=== PATIENT | male | born 1950 | race Caucasian/White ===

== ENCOUNTER 2019-04-26 23:07 | Observation (INO) | payer MEDICARE, MEDICAID ==
[~2019-04-26] VITALS: Ht 172.7 cm; Wt 81.8 kg
[2019-04-26 23:44] LABS: BASOPHILS # (AUTO) 0.1 X10'3 (0-0.2); BASOPHILS % (AUTO) 1.5 % (0-1); EOSINOPHILS # (AUTO) 0.3 X10'3 (0-0.9); EOSINOPHILS % (AUTO) 3.9 % (0-6); HEMATOCRIT 40.9 % (42.0-52.0); LYMPHOCYTES # (AUTO) 2.5 X10'3 (1.1-4.8); LYMPHOCYTES % (AUTO) 37.8 % (21-51); MEAN CORPUSCULAR HEMOGLOBIN 31.6 PG (27.0-31.0); MEAN CORPUSCULAR HGB CONC 34.3 g/dL (33.0-36.5); MEAN PLATELET VOLUME 8.8 FL (7.4-10.4); MONOCYTES # (AUTO) 0.6 X10'3 (0-0.9); MONOCYTES % (AUTO) 8.4 % (2-12); NEUTROPHILS # (AUTO) 3.2 X10'3 (1.8-7.7); NEUTROPHILS % (AUTO) 48.4 % (42-75); PLATELET COUNT 255 X10'3 (140-440); RED BLOOD COUNT 4.44 X10'6 (4.70-6.10); RED CELL DISTRIBUTION WIDTH 13.3 % (11.5-14.5); WHITE BLOOD COUNT 6.7 X10'3 (4.5-11.0)
[2019-04-26 23:52] LABS: PARTIAL THROMBOPLASTIN TIME 27 SECONDS (22-32)
[2019-04-26 23:53] LABS: ALANINE AMINOTRANSFERASE 34 U/L (12-78); ALBUMIN 3.9 G/DL (3.4-5.0); ALBUMIN/GLOBULIN RATIO 1.1 (1.1-1.5); ALKALINE PHOSPHATASE 77 IU/L (46-116); ANION GAP 14 (8-16); ASPARTATE AMINO TRANSFERASE 24 U/L (10-37); BILIRUBIN,TOTAL 0.4 MG/DL (0.1-1.0); BLOOD UREA NITROGEN 13 MG/DL (7-18); BUN/CREATININE RATIO 13.5 (5.4-32.0); CHLORIDE 104 MMOL/L (99-107); CREATININE 0.96 MG/DL (0.60-1.10); GLUCOSE 101 MG/DL (70-104); POTASSIUM 3.7 MMOL/L (3.5-5.1); SODIUM 139 MMOL/L (135-145); TOTAL CARBON DIOXIDE 21.2 MMOL/L (24-32); TOTAL PROTEIN 7.5 G/DL (6.4-8.2); eGFR 78 ML/MIN
--- NOTE | 2019-04-27 02:28 | NUR ---
Patient got up to go to the bathroom, was extremely unsteady, complaining of weakness and dizziness. Evaluated by MD Level 1 stroke alert initiated at this time. Patient's vitals stable at this time
[2019-04-27] MEDS ORDERED: iohexol 350MG/ML 100ml bottle IV ONE (02:30)
--- NOTE | 2019-04-27 02:41 | NUR ---
Patient returns to room. Amalia, stroke nurse, is at bedside awaiting patient.
--- NOTE | 2019-04-27 02:43 | NUR ---
Teleneurology contacted.
--- NOTE | 2019-04-27 02:56 | NUR ---
teleneurologist on camera evaluating patient with stroke nurse.
--- NOTE | 2019-04-27 03:15 | NUR ---
C/O vision being very blurred, exhibits difficulty forcusing on sentences handed to read aloud. Able to partially complete with difficulty.
[2019-04-27 03:18] LABS: ETHANOL 0.175 GM/DL (0.0-0.010)
[2019-04-27] MEDS ORDERED: OMEP40CA13 PO (03:37)
--- NOTE | 2019-04-27 03:42 | NUR ---
Arrived for level 1 stroke with onset at 0223 in the ED department. Pt arrived at 2300 with complaint of CP. Troponins so far are negative. Pt was up to amb to BR and was unsteady upon standing, upon return he was"all over the place and off balance" per the staff. [address] consult with DR Mejia at 0245. No tpa recommended. Inebriation suspected.
--- NOTE | 2019-04-27 03:47 | NUR ---
0310 Pt reports he went to a restaurant at about 8:30 or 9:00 to eat dinner. States had a few beers before arriving and after in addition to some wine. He suffers from heartburn and said he began to hiccough. He paid his bill and went to the restroom where he said he vomited and "passed out. He was found by a patron in the bathroom and was given some tums for his heartburn. He arrived by EMS to the ED at 2309 with C/O CP initially. Currently he has weakness in both lower ext and is ataxic in both upper extremities with finger to nose. He says he has difficulty seeing, but could read some sentences for me. No sensory loss noted. Speech is clear.
--- NOTE | 2019-04-27 03:49 | NUR ---
Patient is resting comfortably in bed and updated on POC.
--- NOTE | 2019-04-27 04:12 | NUR ---
Patient up to restroom with significant amount of assistance. He continues to be unsteady while standing and attempting to urinate.
[2019-04-27] MEDS ORDERED: magnesium hydroxide 30ml (MOM) UD suspension PO PRN (05:10)
[2019-04-27] MEDS ORDERED: acetaminophen 325mg tablet PO PRN ×2 (05:10)
[2019-04-27] MEDS ORDERED: mag hydrox/Alum hydrox/simeth 30ml oral suspension PO PRN (05:10)
[2019-04-27] MEDS ORDERED: HYDROcodone/acetaminophen 5mg/325mg tablet PO PRN (05:10)
[2019-04-27] MEDS ORDERED: diazepam 5mg tablet PO PRN (05:10)
[2019-04-27] MEDS ORDERED: ondansetron/PF 4mg/2ml inj IV PRN (05:10)
[2019-04-27 06:00] LABS: CHOL/HDL RATIO 2.3 (0.00-4.99); CHOLESTEROL 165 MG/DL (0-200); HDL CHOLESTEROL 71 MG/DL (35-60); LDL CHOLESTEROL 64 MG/DL (50-100); TRIGLYCERIDES 240 MG/DL (20-135)
--- NOTE | 2019-04-27 06:17 | NUR ---
Patient in ED. I have received report from POLINA Perez and had the opportunity to ask questions. Awaiting pt's arrival to PCU room 3013V.
[2019-04-27 06:30] VITALS: BP 142/87
--- NOTE | 2019-04-27 06:30 | NUR ---
Pt arrived from ED via gurney. Pt ambulated with 2 RNs in to bed with moderate difficulty. 2 RN skin check performed, vitals obtained, tele box applied, pt oriented to room, including call light use and TV. Pt instructed not to get out of bed, urinal placed at bedside. Pt belongings placed in cupboard, cell phone at bedside. Bed alarm activated. Will continue to closely monitor.
[2019-04-27] MEDS ORDERED: thiamine 100mg tablet PO ONE (08:00)
[2019-04-27] MEDS: normal saline 1000ml 1,000 ML IV SCH ×2 (08:43→15:06)
[2019-04-27] MEDS: aspirin 81mg tablet.DR PO SCH (08:43)
--- NOTE | 2019-04-27 08:45 | NUR ---
Dr. Lantigua at bedside. Orders received for regular diet & 0.5mg Ativan PRN.
[2019-04-27] MEDS ORDERED: LORazepam 2 mg/ml vial IV PRN (09:05)
--- NOTE | 2019-04-27 09:05 | NUR ---
Dr. Lantigua at bedside. New order for Withdraw protocol, moderate. D/C haldol.
--- NOTE | 2019-04-27 10:18 | NUR ---
Pt evaluated this morning. NIH is 0. Still says vision is a bit "blurred". Ability to read SS sentences greatly improved. Awaiting MRI. Echo complete. A bit tremulous with arms outstretched. ETOH withdrawal protocol available as needed.
[2019-04-27 11:00] VITALS: BP 124/71
--- NOTE | 2019-04-27 13:20 | NUR ---
Pt transported out of room to MRI trailer.
--- NOTE | 2019-04-27 14:05 | NUR ---
Pt returned from MRI, ambulated safely back to bed. Tele monitor reapplied. Will continue to monitor.
[2019-04-27 15:00] VITALS: BP 123/76
--- NOTE | 2019-04-27 18:15 | NUR ---
Patient in room PCU 3016. I have received report from Carmen FISH and had the opportunity to ask questions and assume patient care.
--- NOTE | 2019-04-27 18:17 | NUR ---
Orientee documentation: I have reviewed and agree with all interventions, assessments performed and documented by POLINA Chaney.
--- NOTE | 2019-04-27 18:18 | NUR ---
Problems reprioritized. Patient report given, questions answered & plan of care reviewed with POLINA Soares and POLINA Argueta. Addendum: 04/27/19 at 1820 by Ritu Cadena RN Report given to POLINA Gutierres.
[2019-04-27 19:00] VITALS: BP 131/77
[2019-04-27 22:00] VITALS: BP 111/62
[2019-04-28 03:00] VITALS: BP 110/53
[2019-04-28] MEDS: normal saline 1000ml 1,000 ML IV SCH (03:00)
--- NOTE | 2019-04-28 03:32 | NUR ---
pt Hr is in the 50s, charge nurse recommeded not to contact the dr until pt HR go down to the 40s. RN woke pt up, pt said " Im fine jsut tired, I want to go back to sleep."
[2019-04-28 05:21] LABS: BASOPHILS # (AUTO) 0.1 X10'3 (0-0.2); BASOPHILS % (AUTO) 1.2 % (0-1); EOSINOPHILS # (AUTO) 0.3 X10'3 (0-0.9); EOSINOPHILS % (AUTO) 5.1 % (0-6); HEMATOCRIT 40.9 % (42.0-52.0); HEMOGLOBIN 13.7 g/dl (14.0-17.9); LYMPHOCYTES # (AUTO) 2.1 X10'3 (1.1-4.8); LYMPHOCYTES % (AUTO) 33.8 % (21-51); MEAN CORPUSCULAR HGB CONC 33.5 g/dL (33.0-36.5); MEAN CORPUSCULAR VOLUME 92.8 FL (78-98); MEAN PLATELET VOLUME 9.2 FL (7.4-10.4); MONOCYTES # (AUTO) 0.6 X10'3 (0-0.9); MONOCYTES % (AUTO) 9.6 % (2-12); NEUTROPHILS # (AUTO) 3.1 X10'3 (1.8-7.7); NEUTROPHILS % (AUTO) 50.3 % (42-75); PLATELET COUNT 225 X10'3 (140-440); RED BLOOD COUNT 4.41 X10'6 (4.70-6.10); RED CELL DISTRIBUTION WIDTH 13.5 % (11.5-14.5); WHITE BLOOD COUNT 6.2 X10'3 (4.5-11.0)
[2019-04-28 05:39] LABS: ALANINE AMINOTRANSFERASE 28 U/L (12-78); ALBUMIN 3.1 G/DL (3.4-5.0); ALKALINE PHOSPHATASE 70 IU/L (46-116); AMYLASE 41 U/L (25-115); ANION GAP 7 (8-16); ASPARTATE AMINO TRANSFERASE 20 U/L (10-37); BILIRUBIN,TOTAL 0.5 MG/DL (0.1-1.0); BLOOD UREA NITROGEN 18 MG/DL (7-18); BUN/CREATININE RATIO 17.5 (5.4-32.0); CALCIUM 8.5 MG/DL (8.5-10.1); CHLORIDE 111 MMOL/L (99-107); CREATININE 1.03 MG/DL (0.60-1.10); GLUCOSE 99 MG/DL (70-104); LIPASE 301 U/L (73-393); MAGNESIUM 1.6 MG/DL (1.5-2.4); PHOSPHORUS 3.6 MG/DL (2.3-4.5); SODIUM 143 MMOL/L (135-145); TOTAL CARBON DIOXIDE 24.7 MMOL/L (24-32); TOTAL PROTEIN 6.2 G/DL (6.4-8.2); eGFR 72 ML/MIN
--- NOTE | 2019-04-28 06:13 | NUR ---
Problems reprioritized. Patient report given, questions answered & plan of care reviewed with Edson FISH.
--- NOTE | 2019-04-28 06:55 | NUR ---
Patient in room PCU 3016. I have received report from [facility] and had the opportunity to ask questions and assume patient care.
[2019-04-28 07:00] VITALS: BP 112/59
[2019-04-28] MEDS ORDERED: multivitamins, therapeutics tablet PO SCH (08:00)
[2019-04-28] MEDS ORDERED: thiamine 100mg tablet PO SCH (08:00)
[2019-04-28] MEDS ORDERED: folic acid 1mg tablet PO SCH (08:00)
[2019-04-28] MEDS: aspirin 81mg tablet.DR PO SCH (08:22)
--- NOTE | 2019-04-28 09:23 | NUR ---
Case management to help set up transportation to hotel for patient before DC. Left message and pager for CM.
--- NOTE | 2019-04-28 10:38 | NUR ---
Patient was cleared to discharge per MD. Patient discharged at 1030 in stable condition.All Medications to continue at home was reviewed and the patient verbalized understanding. Patient was encouraged to follow up with his primary physician. Patient took all belongings. PIV to left and right AC was discontinued. No skin integrity issues noted. Patient tolerated procedure well with minmal bleeding. Tele box was removed. Nurse called taxi cab for transportation.
--- NOTE | 2019-04-28 11:14 | NUR ---
Left message for patient that he left his phone paver layer here.
== END 2019-04-28 10:34 | disposition home or self-care (01) ==
LOC: ER 23:08 → PCU 3S 04-27 07:17 → CMPBEDREQ 04-27 19:25
PROVIDERS: ADMIT Hospitalist; ATTEND Hospitalist
DX: R07.9 Chest pain, unspecified (principal); R42 Dizziness and giddiness; F10.129 Alcohol abuse with intoxication, unspecified; E78.00 Pure hypercholesterolemia, unspecified; I25.2 Old myocardial infarction; Z87.891 Personal history of nicotine dependence
CPT/HCPCS: 36415; 70496; 70498; 70544; 70551; 71045; 80053; 80061; 80320; 82150; 83690; 83735; 84100; 84484; 85025; 85610; 85730; 87081; 92508; 92616; 93005; 93306; 96361; 96374; 97116; 97161; 97530; 99284; G0378; J2060; J7030; Q9967; 99285